=== PATIENT | female | born 2000 | race Caucasian/White ===

== ENCOUNTER 2025-01-08 13:54 | Emergency (ER) | payer OTHER ==
[~2025-01-08] VITALS: Ht 167.6 cm; Wt 70.0 kg
[2025-01-08 13:59] VITALS: O2SAT 99
[2025-01-08] MEDS ORDERED: LORAZEPAM 2MG/ML INJ IV ONE ×2 (14:15→16:45)
[2025-01-08] MEDS: LORAZEPAM 2MG/ML UD SYRINGE IV NR ×2 (14:43→17:39)
[2025-01-08 15:28] LABS: BASOPHILS % 0.1 % (0.0-2.0); HEMATOCRIT. 42.1 % (36.0-48.0); HEMOGLOBIN. 13.5 g/dL (12.0-16.0); LYMPHOCYTES % 18.5 % (20.0-50.0); MEAN CORPUSCULAR VOLUME 87.6 fL (81.0-99.0); MEAN PLATELET VOLUME 8.6 fl (7.4-10.4); MONOCYTES % 10.9 % (2.0-8.0); NEUTROPHILS % 70.5 % (40.0-76.0); PLATELET 270 x1000/uL (130-400); RED BLOOD CELL COUNT 4.81 mill/uL (4.2-5.4); RED CELL DISTRIBUTION WIDTH 12.9 % (11.6-14.6); WHITE BLOOD COUNT 6.8 x1000/uL (4.5-11.0)
[2025-01-08 15:38] LABS: CHLORIDE 108 mEq/L (98-107); POTASSIUM 3.4 mEq/L (3.5-5.1); SODIUM 139 mEq/L (136-145)
[2025-01-08 15:39] LABS: CALCIUM 9.5 mg/dL (8.7-10.4); CARBON DIOXIDE 18 mEq/L (21-32)
[2025-01-08 15:44] LABS: CREATININE 0.8 mg/dL (0.6-1.0); GLUCOSE 106 mg/dL (70-105); UREA NITROGEN BLOOD 10 mg/dL (9-23)
[2025-01-08 15:45] LABS: ETHANOL BLOOD < 10 mg/dL (<10); HCG SCREEN NEGATIVE
[2025-01-08 15:46] LABS: ACETAMINOPHEN < 2 ug/mL (10-30)
[2025-01-08 16:36] LABS: CLARITY URINE CLEAR (CLEAR); COLOR URINE DARK YELLOW (YELLOW); GLUCOSE URINE NEGATIVE (NEGATIVE); KETONES URINE 4+ (NEGATIVE); LEUKOCYTE ESTERASE URINE TRACE (NEGATIVE); NITRITE URINE NEGATIVE (NEGATIVE); OCCULT BLOOD URINE NEGATIVE (NEGATIVE); PROTEIN URINE 1+ (NEGATIVE); SPECIFIC GRAVITY URINE 1.031 (1.005-1.030)
[2025-01-08 16:45] LABS: *AMPHETAMINES SCREEN URINE PRESUMPTIVE POSITIVE (NEGATIVE); *BARBITURATES SCREEN URINE NEGATIVE (NEGATIVE); *BENZODIAZEPINES SCREEN URINE PRESUMPTIVE POSITIVE (NEGATIVE); *COCAINE SCREEN URINE NEGATIVE (NEGATIVE)
[2025-01-08 16:46] LABS: CANNABINOID URINE SCREEN PRESUMPTIVE POSITIVE (NEGATIVE); ECSTASY MDMA SCREEN URINE CONF.TEST INDICATED (NEGATIVE); METHADONE URINE SCREEN NEGATIVE (NEGATIVE); OPIATES URINE SCREEN NEGATIVE (NEGATIVE); PHENCYCLIDINE URINE SCREEN NEGATIVE (NEGATIVE)
[2025-01-08 17:02] LABS: BACTERIA URINE NONE SEEN; RBC URINE NONE SEEN /hpf (0-2); SQUAMOUS EPITHELIAL CELL URINE FEW /lpf (RARE/1+); WBC URINE 0-2 /hpf (0-2)
[2025-01-08] MEDS: ACETAMINOPHEN 325MG TABLET PO ONE (17:12)
[2025-01-08 17:50] VITALS: BP 144/91; PULSE 88; RESP 20; TEMP 36.7; O2SAT 100
== END 2025-01-08 17:52 | disposition admitted as inpatient to this hospital (09) ==
LOC: ER 13:54
DX: R56.9 Unspecified convulsions (principal); F15.90 Other stimulant use, unspecified, uncomplicated; F12.90 Cannabis use, unspecified, uncomplicated; F14.90 Cocaine use, unspecified, uncomplicated; Z87.891 Personal history of nicotine dependence
CPT/HCPCS: 80305; 80048; 81003; 81025; 80307; 80329; 80320; 84703; 85025; 36415; 71045; 70450; 96374; 96376; 99285; J2060; Z7610 ×4; A4606; G0480

== ENCOUNTER 2025-01-31 01:46 | Emergency (ER) | payer OTHER, MEDICAID ==
[~2025-01-31] VITALS: Ht 167.6 cm; Wt 70.0 kg
[2025-01-31 01:56] VITALS: O2SAT 99
[2025-01-31] MEDS ORDERED: LORAZEPAM 2MG/ML INJ IM STA (02:12)
[2025-01-31] MEDS: DIPHENHYDRAMINE 50MG/ML VIAL IM STA (02:12)
[2025-01-31] MEDS: HALOPERIDOL LACTATE 5MG/ML VIAL IM STA (02:12)
[2025-01-31] MEDS: LORAZEPAM 2MG/ML UD SYRINGE IM NR (02:30)
[2025-01-31 06:44] LABS: BASOPHILS % 0.5 % (0.0-2.0); EOSINOPHILS % 0.1 % (0.0-5.0); HEMATOCRIT. 39.9 % (36.0-48.0); MEAN CORPUSCULAR HEMOGLOBIN 28.8 pg (28.0-32.0); MEAN CORPUSCULAR HGB CONC 32.5 g/dL (31.0-37.0); MEAN CORPUSCULAR VOLUME 88.5 fL (81.0-99.0); MEAN PLATELET VOLUME 7.5 fl (7.4-10.4); MONOCYTES % 12.4 % (2.0-8.0); PLATELET 276 x1000/uL (130-400); RED BLOOD CELL COUNT 4.51 mill/uL (4.2-5.4); WHITE BLOOD COUNT 6.2 x1000/uL (4.5-11.0)
[2025-01-31 06:56] LABS: CHLORIDE 108 mEq/L (98-107); POTASSIUM 3.9 mEq/L (3.5-5.1); SODIUM 141 mEq/L (136-145)
[2025-01-31 06:57] LABS: CALCIUM 9.4 mg/dL (8.7-10.4); CARBON DIOXIDE 24 mEq/L (21-32)
[2025-01-31 07:02] LABS: CREATININE 0.8 mg/dL (0.6-1.0); ETHANOL BLOOD < 10 mg/dL (<10); GLUCOSE 103 mg/dL (70-105); UREA NITROGEN BLOOD 11 mg/dL (9-23)
[2025-01-31 07:04] LABS: ACETAMINOPHEN < 2 ug/mL (10-30)
[2025-01-31 07:31] LABS: HCG SCREEN NEGATIVE
[2025-01-31 12:13] VITALS: BP 112/84; PULSE 102; RESP 18; TEMP 36.9; O2SAT 100
== END 2025-01-31 14:01 | disposition home or self-care (01) ==
LOC: ER 02:06
DX: F15.10 Other stimulant abuse, uncomplicated (principal); F12.90 Cannabis use, unspecified, uncomplicated; F14.90 Cocaine use, unspecified, uncomplicated; Z79.899 Other long term (current) drug therapy; Z20.822 Contact with and (suspected) exposure to COVID-19; W19.XXXA Unspecified fall, initial encounter; Y93.89 Activity, other specified; Y92.89 Other specified places as the place of occurrence of the external cause; Y99.8 Other external cause status
CPT/HCPCS: 80048; 80307; 80329; 80320; 84703; 83735; 85025; 36415; 96372; 99285; 87426; J1200; J1630; J2060; G0480

== ENCOUNTER 2025-08-08 21:38 | Emergency (ER) | payer OTHER, MEDICAID | END 2025-08-08 22:04 | disposition left against medical advice (07) | LOC: ER 21:38 | DX: Z00.00 Encounter for general adult medical examination without abnormal findings (principal); Z53.21 Procedure and treatment not carried out due to patient leaving prior to being seen by health care provider ==